=== PATIENT | female | born 1985 | race Caucasian/White ===

== ENCOUNTER 2016-08-23 19:16 | Emergency (ER) | payer OTHER | END 2016-08-23 22:31 | disposition home or self-care (01) | LOC: FER 19:16 | DX: J06.9 Acute upper respiratory infection, unspecified (principal); M54.40 Lumbago with sciatica, unspecified side; K21.9 Gastro-esophageal reflux disease without esophagitis; F17.210 Nicotine dependence, cigarettes, uncomplicated; Z98.890 Other specified postprocedural states | CPT/HCPCS: 71020; 87450; 87804; 87899; 93005; J1100; J1885 ==

== ENCOUNTER 2021-04-01 15:15 | Emergency (ER) | payer OTHER ==
[~2021-04-01 15:15] MED LIST: ADDERALL 20 MG20 MG PO; CLEOCIN300 MG PO; MEDROL 4MG DOSEP4 MG PO; PHENERGAN12.5 M1 PO; PROTONIX 40MG T40 MG PO; TRAMADOL HCL50 MG PO; WELLBUTRIN SR150 M1 PO; ZOFRAN4 MG PO
[2021-04-01] MEDS ORDERED: NAPROSYN500 MG PO (17:08)
[2021-04-01] MEDS ORDERED: HYDROCODON-ACE1 EAC2 PO ×2 (17:08→17:11)
[2021-04-01] MEDS ORDERED: NAPROXEN500 MG PO (17:31)
== END 2021-04-01 17:29 | disposition home or self-care (01) ==
LOC: FER 15:15
DX: S02.2XXA Fracture of nasal bones, initial encounter for closed fracture (principal); S00.83XA Contusion of other part of head, initial encounter; F17.210 Nicotine dependence, cigarettes, uncomplicated; W19.XXXA Unspecified fall, initial encounter; Y92.009 Unspecified place in unspecified non-institutional (private) residence as the place of occurrence of the external cause
CPT/HCPCS: 70450; 70486

== ENCOUNTER 2021-06-15 16:48 | Inpatient (IN) | payer OTHER ==
[~2021-06-15] VITALS: Ht 154.9 cm; Wt 61.3 kg
[~2021-06-15 16:48] MED LIST changes: +HYDROCODON-ACE1 EAC2 PO; +NAPROSYN500 MG PO; +NAPROXEN500 MG PO
[2021-06-15 18:01] LABS: BASOPHIL 0.2 % (0-2); EOSINOPHIL 0 % (0-5); HCT 47.5 % (37.0-47.0); HGB 15.6 g/dl (12.5-16.0); MCHC 32.8 g/dL (32.0-36.0); MCV 91.3 fL (78.0-100.0); MONOCYTE 3.8 % (0-12); MPV 9.4 fL (6.0-9.5); NEUTROPHIL 86.6 % (41-80); NRBC 0; PLT 280 K/uL (150-400); RDW 13.4 % (11.5-14.0); WBC 9.3 K/uL (4.0-10.5)
[2021-06-15 18:38] LABS: CORONAVIRUS 2019 SARS-COV-2 NEGATIVE (NEGATIVE); INFLUENZA A NAA NEGATIVE (NEGATIVE)
[2021-06-15 18:53] LABS: BUN 13 mg/dL (7-18); CHLORIDE 100 mmol/L (98-107); CO2 (BICARBONATE) 21 mmol/L (21-32); CREATININE 0.95 mg/dL (0.51-0.95); GLUCOSE 88 mg/dL (74-106); POTASSIUM 3.4 mmol/L (3.5-5.1)
[2021-06-15 19:11] LABS: ALKALINE PHOSHATASE 111 U/L (46-116); BILIRUBIN - TOTAL 3.3 mg/dL (0.2-1.0); GLOBULIN (CALCULATION) 3.1 g/dL; TOTAL PROTEIN 7.1 g/dL (6.4-8.2)
[2021-06-15 20:10] LABS: ALT 3378 U/L (14-59); AST >2000 U/L (15-37)
[2021-06-15 20:31] LABS: AMYLASE 108 U/L (25-115); LIPASE 253 U/L (73-393)
[2021-06-15 22:22] LABS: BILIRUBIN 2+ mg/dL (NEGATIVE); BLOOD 3+ Ery/uL (NEGATIVE); CLARITY CLOUDY (CLEAR); COLOR BROWN (YELLOW); GLUCOSE (U) NORMAL (NORMAL); LEUKOCYTES NEGATIVE Leu/uL (NEGATIVE); NITRITE NEGATIVE (NEGATIVE); PROTEIN 2+ mg/dL (NEGATIVE); SPECIFIC GRAVITY 1.025 (1.001-1.030); pH 5.5 (5.0-9.0)
[2021-06-15 22:28] LABS: BACTERIA 3+
[2021-06-15 22:29] LABS: BARBITURATES NEGATIVE (NEGATIVE); ECSTASY (MDMA) NEGATIVE (NEGATIVE); GRANULAR CASTS MODERATE; MARIJUANA (THC) NEGATIVE (NEGATIVE); METHADONE NEGATIVE (NEGATIVE); OPIATES NEGATIVE (NEGATIVE)
[2021-06-15 22:30] LABS: AMPHETAMINES NEGATIVE (NEGATIVE); OXYCODONE NEGATIVE (NEGATIVE)
[2021-06-15 23:06] LABS: ALKALINE PHOSHATASE 98 U/L (46-116); ALT 2570 U/L (14-59); AST >2000 U/L (15-37); GLOBULIN (CALCULATION) 2.9 g/dL; TOTAL PROTEIN 6.9 g/dL (6.4-8.2)
[2021-06-16 10:01] LABS: INR 1.49 (0.9-1.2); PROTHROMBIN TIME 17.3 SECONDS (11.8-13.4); PTT 31.9 SECONDS (24.4-34.7)
[2021-06-16 10:17] LABS: ACETAMINOPHEN (TYLENOL) < 2.0 ug/mL (10.0-30.0)
[2021-06-16 10:58] LABS: ACETAMINOPHEN (TYLENOL) <2.0 ug/mL (10.0-30.0); ALT >3500 U/L (14-59); AST >2000 U/L (15-37)
[2021-06-16 17:20] LABS: INR 1.7 (0.9-1.2); PROTHROMBIN TIME 19.2 SECONDS (11.8-13.4)
[2021-06-16 17:39] LABS: ALBUMIN 2.8 g/dL (3.4-5.0); ALKALINE PHOSHATASE 65 U/L (46-116); ALT >3500 U/L (14-59); AST >2000 U/L (15-37); BILIRUBIN - TOTAL 1.5 mg/dL (0.2-1.0); BUN 8 mg/dL (7-18); BUN/CREAT RATIO (CALC) 11.3 RATIO; CHLORIDE 103 mmol/L (98-107); CO2 (BICARBONATE) 24 mmol/L (21-32); CREATININE 0.71 mg/dL (0.51-0.95); GLOBULIN (CALCULATION) 2.1 g/dL; GLUCOSE 79 mg/dL (74-106); POTASSIUM 3.4 mmol/L (3.5-5.1)
[2021-06-16 17:44] LABS: TOTAL PROTEIN 4.9 g/dL (6.4-8.2)
[2021-06-17 07:09] LABS: HBSAG SCREEN Negative (Negative); HEP A AB, IGM Negative (Negative); HEP B CORE AB, IGM Negative (Negative); HEP C VIRUS AB <0.1 (0.0-0.9)
[2021-06-17 08:22] LABS: ACETAMINOPHEN (TYLENOL) 3.5 ug/mL (10.0-30.0); BILIRUBIN - TOTAL 1.3 mg/dL (0.2-1.0)
[2021-06-17 08:25] LABS: INR 1.4 (0.9-1.2); PROTHROMBIN TIME 16.5 SECONDS (11.8-13.4)
[2021-06-17 15:15] LABS: INR 1.24 (0.9-1.2); PROTHROMBIN TIME 14.9 SECONDS (11.8-13.4)
[2021-06-17 15:29] LABS: ACETAMINOPHEN (TYLENOL) 2.5 ug/mL (10.0-30.0); ALBUMIN 2.6 g/dL (3.4-5.0); BUN/CREAT RATIO (CALC) 3.2 RATIO; CREATININE 0.63 mg/dL (0.51-0.95); GLOBULIN (CALCULATION) 2.2 g/dL; POTASSIUM 3.1 mmol/L (3.5-5.1); TOTAL PROTEIN 4.8 g/dL (6.4-8.2)
[2021-06-17 22:07] LABS: INR 1.19 (0.9-1.2); PROTHROMBIN TIME 14.5 SECONDS (11.8-13.4)
[2021-06-17 22:18] LABS: ACETAMINOPHEN (TYLENOL) 3.7 ug/mL (10.0-30.0); BILIRUBIN - TOTAL 0.9 mg/dL (0.2-1.0)
[2021-06-18 06:44] LABS: BILIRUBIN NEGATIVE (NEGATIVE); BLOOD 2+ Ery/uL (NEGATIVE); CLARITY CLEAR (CLEAR); COLOR YELLOW (YELLOW); GLUCOSE (U) NORMAL (NORMAL); LEUKOCYTES TRACE Leu/uL (NEGATIVE); NITRITE NEGATIVE (NEGATIVE); PROTEIN NEGATIVE (NEGATIVE); SPECIFIC GRAVITY 1.015 (1.001-1.030); pH 6.5 (5.0-9.0)
[2021-06-18 06:57] LABS: BACTERIA TRACE; URINARY WBC RARE
[2021-06-18] MEDS ORDERED: TRAZODONE 50MG50 MG PO (10:45)
[2021-06-18] MEDS ORDERED: VRAYLAR1.5 MG PO (10:45)
[2021-06-18] MEDS ORDERED: BRIN5TAB PO (10:46)
[2021-06-18] MEDS ORDERED: ZANAFLEX2 MG PO (10:46)
[2021-06-18] MEDS ORDERED: NEURONTIN300 MG PO (10:47)
[2021-06-18 11:46] LABS: INR 1.14 (0.9-1.2)
[2021-06-18 11:57] LABS: ACETAMINOPHEN (TYLENOL) 2.8 ug/mL (10.0-30.0); ALBUMIN 2.7 g/dL (3.4-5.0); ALKALINE PHOSHATASE 60 U/L (46-116); ALT 1758 U/L (14-59); AST 196 U/L (15-37); BILIRUBIN - TOTAL 0.8 mg/dL (0.2-1.0); BUN <1 mg/dL (7-18); CHLORIDE 104 mmol/L (98-107); CO2 (BICARBONATE) 35 mmol/L (21-32); CREATININE 0.63 mg/dL (0.51-0.95); GLOBULIN (CALCULATION) 2.4 g/dL; GLUCOSE 109 mg/dL (74-106); POTASSIUM 2.9 mmol/L (3.5-5.1); TOTAL PROTEIN 5.1 g/dL (6.4-8.2)
--- NOTE | 2021-06-18 14:50 | NUR ---
RN SPOKE TO POISON CONTROL AND WAS TOLD THAT INFUSION WAS OK TO STOP AND R/T [facility] TO ASK PT AND LOOK IN HER THINGS IN REGARD TO HER LABS INCREASING. RN STOOD AND WATCHED PT REMOVE ITEMS FROM PURSE. PT AGGREABLE AT THE TIME. WHILE RN IN ROOM WITH OTHER PT SHE BEGAN YELLING. RN REENTERED ROOM AND WAS YELLING "I HAVE A JOB TO GET BACK TO. HOW DARE YOU ACCUSE ME OF TAKING MORE TYLENOL" "GEN BEEN HERE FOR DAYS AND I WOULDNT DO THAT" "ARE YOU GOING TO DO ANYTHING OR JUST LEAVE". RN ASKED PT IF SHE NEEDED ANYTHING AND SHE STATED NO AND LEFT ROOM. WILL CONTINUE TO MONITOR
[2021-06-19 08:29] LABS: HCT 34.6 % (37.0-47.0); HGB 11.5 g/dl (12.5-16.0); MCH 30.9 pg (25.0-31.0); MCHC 33.2 g/dL (32.0-36.0); MPV 9.6 fL (6.0-9.5); RBC 3.72 M/uL (4.20-5.40); RDW 13.9 % (11.5-14.0); WBC 4.5 K/uL (4.0-10.5)
[2021-06-19 09:00] LABS: ALBUMIN 2.8 g/dL (3.4-5.0); BILIRUBIN - TOTAL 0.6 mg/dL (0.2-1.0); BUN/CREAT RATIO (CALC) 3.4 RATIO; CREATININE 0.59 mg/dL (0.51-0.95); GLOBULIN (CALCULATION) 2.4 g/dL; POTASSIUM 3.7 mmol/L (3.5-5.1); TOTAL PROTEIN 5.2 g/dL (6.4-8.2)
[2021-06-19] MEDS ORDERED: OXY-IR 5MG5 MG PO (10:49)
--- NOTE | 2021-06-19 14:21 | NUR ---
1130 PT D/CD. D/C INSTRUCTIONS GIVEN AND PT D/C HOME AMBULATORY WITH FAMILY
== END 2021-06-19 11:30 | disposition home or self-care (01) | DRG 918 ==
LOC: FER 16:48 → FOFB 06-18 09:19
PROVIDERS: Emergency Medicine; Emergency Medicine Emergency Medical Services; Internal Medicine; Nurse Practitioner; Nurse Practitioner Family; ADMIT Family Medicine
DX: T39.1X1A Poisoning by 4-Aminophenol derivatives, accidental (unintentional), initial encounter (principal); N39.0 Urinary tract infection, site not specified; K71.2 Toxic liver disease with acute hepatitis; Z20.822 Contact with and (suspected) exposure to COVID-19; G47.00 Insomnia, unspecified; F32.A Depression, unspecified; F41.9 Anxiety disorder, unspecified; M54.50 Low back pain, unspecified; E86.0 Dehydration; Z98.890 Other specified postprocedural states; Z79.899 Other long term (current) drug therapy
CPT/HCPCS: 36415; 76705; 80053; 80074; 80076; 80305; 81001; 82140; 82150; 82247; 83690; 84450; 84460; 85025; 85610; 85730; 87088; G0480; J0132; J0696; J1170; J1885; J2405; J2550; J7030; J7060; J7070; Q9967; U0002

== ENCOUNTER 2021-10-05 16:04 | Emergency (ER) | payer OTHER ==
[~2021-10-05 16:04] MED LIST changes: +BRIN5TAB PO; +NEURONTIN300 MG PO; +OXY-IR 5MG5 MG PO; +TRAZODONE 50MG50 MG PO; +VRAYLAR1.5 MG PO; +ZANAFLEX2 MG PO
[2021-10-05] MEDS ORDERED: NORCO 5-325 TA1 EACH PO (18:22)
[2021-10-05] MEDS ORDERED: CYCLOBENZAPRINE10 MG PO (18:22)
[2021-10-05] MEDS ORDERED: MEDROL 4MG DOSEP4 MG PO (18:22)
== END 2021-10-05 18:41 | disposition home or self-care (01) ==
LOC: FER 16:04
DX: S23.3XXA Sprain of ligaments of thoracic spine, initial encounter (principal); S33.5XXA Sprain of ligaments of lumbar spine, initial encounter; S13.4XXA Sprain of ligaments of cervical spine, initial encounter; S40.812A Abrasion of left upper arm, initial encounter; S40.811A Abrasion of right upper arm, initial encounter; S20.319A Abrasion of unspecified front wall of thorax, initial encounter; V49.40XA Driver injured in collision with unspecified motor vehicles in traffic accident, initial encounter; Z28.311 Partially vaccinated for COVID-19
CPT/HCPCS: 70450; 71045; 72125; 72128; 72131; 73630; J1885

== ENCOUNTER 2021-12-20 12:14 | Emergency (ER) | payer OTHER ==
[~2021-12-20 12:14] MED LIST changes: +CYCLOBENZAPRINE10 MG PO; +NORCO 5-325 TA1 EACH PO
[2021-12-20 15:35] LABS: BILIRUBIN NEGATIVE (NEGATIVE); BLOOD NEGATIVE Ery/uL (NEGATIVE); CLARITY CLEAR (CLEAR); COLOR YELLOW (YELLOW); GLUCOSE (U) NORMAL (NORMAL); LEUKOCYTES NEGATIVE Leu/uL (NEGATIVE); NITRITE NEGATIVE (NEGATIVE); PROTEIN NEGATIVE (NEGATIVE); SPECIFIC GRAVITY <=1.005 (1.001-1.030); UROBILINOGEN 0.2 mg/dL (0.2-1.0)
[2021-12-20] MEDS ORDERED: IBUPROFEN800 MG PO (17:05)
[2021-12-20] MEDS ORDERED: CYCLOBENZAPRINE10 MG PO (17:05)
== END 2021-12-20 17:10 | disposition home or self-care (01) ==
LOC: FER 12:14
PROVIDERS: Physician Assistant
DX: S16.1XXA Strain of muscle, fascia and tendon at neck level, initial encounter (principal); S29.012A Strain of muscle and tendon of back wall of thorax, initial encounter; S90.01XA Contusion of right ankle, initial encounter; S00.83XA Contusion of other part of head, initial encounter; F17.210 Nicotine dependence, cigarettes, uncomplicated; G89.29 Other chronic pain; Y04.0XXA Assault by unarmed brawl or fight, initial encounter; Y92.89 Other specified places as the place of occurrence of the external cause
CPT/HCPCS: 70486; 72100; 72125; 72128; 73610; 81003; J1885; Q0162

== ENCOUNTER 2022-02-25 19:55 | Emergency (ER) | payer OTHER ==
[~2022-02-25 19:55] MED LIST changes: +IBUPROFEN800 MG PO
== END 2022-02-25 23:01 | disposition home or self-care (01) ==
LOC: FER 19:55
DX: S96.911A Strain of unspecified muscle and tendon at ankle and foot level, right foot, initial encounter (principal); F17.290 Nicotine dependence, other tobacco product, uncomplicated; W17.2XXA Fall into hole, initial encounter; Y92.89 Other specified places as the place of occurrence of the external cause; Z28.310 Unvaccinated for COVID-19
CPT/HCPCS: 73600; 73620